=== PATIENT | female | born 1945 | race Caucasian/White ===

== ENCOUNTER → 2018-01-30 17:07 | Outpatient (CLI) | payer MEDICARE, MEDICAID ==
[2015-12-06 10:21] VITALS: BMI 34.5
[~2018-01-30 17:07] MED LIST: CARAFATE1 G PO; CLARITIN 10 MG10 MG PO; INDERAL 40 MG T40 MG PO; METROGEL 0.75 %45 GM TOPICAL; PRAVACHOL20 MG PO; PROAIR HFA8.5 GM INH; PROZAC20 MG PO; TRAZODONE HCL50 MG PO; VIRTUSSIN AC SYRUP PO
== END | disposition home or self-care (01) ==
LOC: D.MAMMO 13:15
DX: Z12.31 Encounter for screening mammogram for malignant neoplasm of breast (principal)

== ENCOUNTER → 2018-03-13 20:54 | Outpatient (CLI) | payer MEDICARE, MEDICAID ==
[2015-12-06 10:21] VITALS: BMI 34.5
== END | disposition home or self-care (01) ==
LOC: D.MAMMO 02-25 08:30
DX: R92.8 Other abnormal and inconclusive findings on diagnostic imaging of breast (principal)